=== PATIENT | male | born 1980 | race Caucasian/White ===

== ENCOUNTER 2020-12-14 14:51 | Emergency (ER) | payer BC ==
[2020-12-14 15:06] VITALS: BP 09/63
[2020-12-14] MEDS ORDERED: DOXYCYC MONO100 M2 PO (16:03)
== END 2020-12-14 16:51 | disposition home or self-care (01) | DRG 605 ==
LOC: ED 14:51
PROC: 0HQNXZZ Repair Left Foot Skin, External Approach (ICD-10-PCS; principal; 2020-12-14)
DX: S91.012A Laceration without foreign body, left ankle, initial encounter (principal); W31.1XXA Contact with metalworking machines, initial encounter; Y93.89 Activity, other specified; Y92.009 Unspecified place in unspecified non-institutional (private) residence as the place of occurrence of the external cause